=== PATIENT | male | born 1950 | race Caucasian/White ===

== ENCOUNTER 2023-10-02 03:04 | Emergency (ER) | payer OTHER ==
[~2023-10-02] VITALS: Ht 177.8 cm; Wt 71.7 kg
[2023-10-02 03:10] VITALS: BP 146/84; PULSE 89; RESP 20; TEMP 99; O2SAT 98
[2023-10-02 04:50] LABS: Urine Bacteria None Seen /hpf (None Seen)
[2023-10-02 04:58] LABS: Urine Blood Negative /uL (Negative); Urine Clarity Clear (Clear); Urine Color Yellow (Yellow); Urine Protein, UAD TRACE (Negative); Urine Specific Gravity 1.033 (1.001-1.035); Urine Urobilinogen Normal (Negative); Urine WBC 1 /hpf (0 - 3); Urine pH 5.5 (5.0-9.0)
[2023-10-02 05:08] LABS: COVID19 ANTIGEN SOFIA FIA NEGATIVE (NEGATIVE); Rapid Influenza A Negative (Negative); Rapid Influenza B Negative (Negative)
[2023-10-02] MEDS ORDERED: BENZ100C97 PO (05:15)
[2023-10-02] MEDS: KETOROLAC TROMETH 30 MG/ML 1ML VIAL IM ONE (05:18)
[2023-10-02] MEDS ORDERED: GUAI1SOL3 PO (05:43)
== END 2023-10-02 05:37 | disposition home or self-care (01) ==
LOC: ER 03:04
DX: J06.9 Acute upper respiratory infection, unspecified (principal); E11.9 Type 2 diabetes mellitus without complications; Z88.0 Allergy status to penicillin; Z20.822 Contact with and (suspected) exposure to COVID-19
CPT/HCPCS: 36415; 71045; 81001; 87426; 87804; 96372; 99284; J1885